=== PATIENT | male | born 1945 | race Caucasian/White ===

== ENCOUNTER 2018-11-21 11:28 | Outpatient (RCR) | payer MEDICARE | END 2019-02-19 | disposition home or self-care (01) | LOC: ONC 11:28 | PROVIDERS: ATTEND Radiology Radiation Oncology | DX: C79.51 Secondary malignant neoplasm of bone (principal); C34.12 Malignant neoplasm of upper lobe, left bronchus or lung; C77.0 Secondary and unspecified malignant neoplasm of lymph nodes of head, face and neck; C77.1 Secondary and unspecified malignant neoplasm of intrathoracic lymph nodes; E78.5 Hyperlipidemia, unspecified; Z87.891 Personal history of nicotine dependence; Z79.899 Other long term (current) drug therapy | CPT/HCPCS: 99213 ==

== ENCOUNTER → 2019-04-11 | Outpatient (CLI) | payer MEDICARE ==
[2019-04-11 12:05] LABS: BASOPHILS % (AUTO) 4 % (0-10); EOSINOPHILS % (AUTO) 1 % (0-10); HEMATOCRIT 28 % (40-54); HEMOGLOBIN 8.8 G/DL (13.3-17.7); LYMPHOCYTES # (AUTO) 0.3 X 10^3 (1.0-4.0); LYMPHOCYTES % (AUTO) 32 % (12-44); MEAN CORPUSCULAR HEMOGLOBIN 28 PG (25-34); MEAN CORPUSCULAR HGB CONC 31 G/DL (32-36); MEAN CORPUSCULAR VOLUME 89 FL (80-99); MEAN PLATELET VOLUME 9.9 FL (7.4-10.4); MONOCYTES # (AUTO) 0.2 X 10^3 (0.0-1.0); MONOCYTES % (AUTO) 21 % (0-12); NEUTROPHILS # (AUTO) 0.3 X 10^3 (1.8-7.8); NEUTROPHILS % (AUTO) 42 % (42-75); PLATELET COUNT 341 10^3/uL (130-400); RED CELL DISTRIBUTION WIDTH 20.7 % (10.0-14.5)
[2019-04-11 12:12] LABS: WHITE BLOOD COUNT 0.8 10^3/uL (4.3-11.0)
[2019-04-11 12:33] LABS: ALANINE AMINOTRANSFERASE 19 U/L (0-55); ALBUMIN 2.6 GM/DL (3.2-4.5); ALKALINE PHOSPHATASE 85 U/L (40-136); BILIRUBIN,TOTAL 0.6 MG/DL (0.1-1.0); BUN/CREATININE RATIO 24; CALCIUM 8.2 MG/DL (8.5-10.1); CARBON DIOXIDE 26 MMOL/L (21-32); CHLORIDE 103 MMOL/L (98-107); GFR ESTIMATED > 60; GLUCOSE 168 MG/DL (70-105); POTASSIUM 4.5 MMOL/L (3.6-5.0); SODIUM 138 MMOL/L (135-145); TOTAL PROTEIN 5.2 GM/DL (6.4-8.2)
[2019-04-11 12:41] LABS: BAND NEUTROPHILS 0 %; BASOPHILS % (MANUAL) 2 %; EOSINOPHILS % (MANUAL) 0 %; LYMPHOCYTES % (MANUAL) 32 %; MONOCYTES % (MANUAL) 18 %; NEUTROPHILS % (MANUAL) 48 %; POLYCHROMASIA SLIGHT
[2019-04-11 12:42] LABS: ANISOCYTOSIS MARKED; ELLIPT/OVALOCYTES SLIGHT
== END ==
LOC: LAB 11:52
PROVIDERS: ATTEND Internal Medicine Hematology & Oncology
DX: C34.12 Malignant neoplasm of upper lobe, left bronchus or lung (principal); C79.51 Secondary malignant neoplasm of bone
CPT/HCPCS: 36415; 80053; 85007; 85027